=== PATIENT | female | born 1935 | race Caucasian/White ===

== ENCOUNTER 2017-01-13 17:25 | Emergency (ER) | payer OTHER ==
[2017-01-13 17:34] VITALS: TEMP 97.3
[2017-01-13] MEDS ORDERED: TETANUS, DIPHTHERIA TOX (7YR+) 0.5 ML INJ IM ONE (18:01)
--- NOTE | 2017-01-13 18:32 | EDPHY ---
H & P Stated Complaint: fall trip lac lip -LOC Source: Patient, Family Exam Limitations: No limitations - Personal History Current Tetanus/Diphtheria Vaccine: Unsure Current Tetanus Diphtheria and Acellular Pertussis (TDAP): Unsure - Medical/Surgical History Hx Asthma: Yes Hx Chronic Respiratory Disease: No Hx Diabetes: No Hx Cardiac Disease: Yes Hx Renal Disease: No Hx Cirrhosis: No Hx Alcoholism: No Hx Splenectomy or Spleen Trauma: No Other PMH: High chol, valve replacement - Social History Smoking Status: Never smoked HPI/ROS: CHIEF COMPLAINT: Fall, facial contusions, lip laceration HISTORY OF PRESENT ILLNESS: Patient was walking out of her home to go to the restroom and an outdoor bathroom less than 1 hour prior to arrival. She says she tripped and fell. She landed on her face. There is no loss of consciousness. She complains of some bruising to the face at a lip laceration that is bleeding heavily. This is the lower lip centrally. It is involving the inner aspect of the lip over the mucosa. She has no dental pain. No headache. No loss of conscious. No nausea or vomiting. No visual disturbance. No neck pain or stiffness. She denies her teeth are malaligned. She has no difficulty opening her mouth. The pain of the lip is mild. No radiating symptoms. She does take Plavix due to a valve replacement. No other associated complaints or modifying factors. Her is at bedside and witnessed the fall. REVIEW OF SYSTEMS: Ten systems reviewed and are negative unless otherwise noted in the HPI PAST MEDICAL HISTORY: As reviewed. Plavix for valvuloplasty SOCIAL HISTORY: Nonsmoker. Lives independently with her spouse FAMILY HISTORY: Noncontributory EXAMINATION General Appearance: Alert, no distress Head: normocephalic. Multiple areas of contusion to the face. Laceration of the lower lip as noted below. No Alford sign. No raccoon eyes. No palpable depressions. No scalp hematoma. Eyes: Pupils equal and round, no conjunctival pallor or injection ENT, Mouth: Mucous membranes moist. There is a 1.25 cm laceration of the lower lip, involving the mucosa. There is no involvement of the vermilion border. Airway is widely patent. There is dried blood about the mouth. Neck: Normal inspection, supple. Kyphotic appearance. Nontender. No step-off , crepitus or deformity Respiratory: Lungs are clear to auscultation Cardiovascular: Systolic murmur. Regular rate and rhythm. Gastrointestinal: Abdomen is soft and nontender Back: non-tender, no bony abnormalities Neurological: GCS 15. Cranial nerves 2-12 grossly intact. Strength is symmetric in all 4 limbs A&O, nonfocal. No pronator drift. No dysmetria. Normal mental status. Skin: Warm and dry, no rash. 1.25 cm oblique laceration of the lower lip centrally. This involves the mucosa. No involvement of the vermilion border. There is moderate bleeding from the wound. No foreign body present. No surrounding cyanosis. Extremities: Nontender, no pedal edema Psychiatric: Mood and affect normal DIFFERENTIAL DIAGNOSES: Including but not limited to closed head injury, intracranial hemorrhage, skull fracture, lip laceration, facial contusions, cervical fracture, cervical sprain MDM: 5:50 p.m. Mechanical fall with facial ecchymosis. There is a lip laceration with moderate bleeding present. No foreign body appreciated. Continue pressure for hemostasis. CT scan of the head ordered due to Plavix use. She is in no acute distress with a normal neuro examination. 6:25 p.m. Lower lip laceration has been anesthetized and closed without complication. There was a mild, superficial arterial bleed noted. This has been hemostasis with pressure and closure of the wound. I have monitored her for 5 minutes with pressure and there is no bleeding at this time. I will monitor and recheck. CT scan is pending at this time. 6:30 p.m. Notified by radiologist Dr. Piedra. CT scan of the head reveals no acute findings. CT scan of the cervical spine reveals chronic, degenerative changes. No acute findings. 7:04 p.m. I have re-evaluated the patient. Now that the patient's wound have been irrigated further there is 1 small area of laceration defects. There was [address] The totals up to 4 simple interrupted sutures. She is hemostasis at this point. Discharged home in stable condition. I plan to drive back to [place] tomorrow morning. The contacted primary care physician in the morning for follow-up tomorrow or on Tuesday. Return to the nearest ER for any headache, vomiting, visual disturbance, neck pain, fever. She is comfortable this plan and discharged home stable condition PROCEDURE: Laceration repair Consent: Verbal Location: Lower lip, centrally Length of repair: 1.25 cm Complexity: Complex due to bleeding Layer involvement: Single Anesthesia: Local, 1% lidocaine plain, 3 mL Irrigation: Extensive Debridement: None Procedure description: Following good anesthesia, the wound was copiously irrigated. Wound bed was explored and there is no foreign body noted. Wound borders were approximated well with good hemostasis. Tolerated well without complication. Suture/Staple material: 6-0 plain gut, 4 simple interrupted sutures of the mucosa Wound care: Routine as discussed Suture/Staple removal: None. Absorbable sutures SUPERVISION: Patient was evaluated in conjunction with the supervising physician. Please see their note for details. (Andrews Dominguez) Constitutional: Initial Vital Signs Temperature (C) 36.3 C 01/13/17 17:30 Heart Rate 84 01/13/17 17:30 Respiratory Rate 16 01/13/17 17:30 Blood Pressure 115/94 H 01/13/17 17:30 O2 Sat (%) 95 01/13/17 17:30 O2 Delivery Mode Room Air Allergies/Adverse Reactions: morphine Allergy (Verified 01/13/17 17:34) Medical Decision Making - Diagnostics Imaging Results: Imaging Impressions Cervical Spine CT 01/13/17 17:51 Impression: 1. No acute posttraumatic abnormality identified. If symptoms persist and clinical suspicion warrants, consider MRI. 2. Multilevel spondylolistheses, degenerative change, and fusion anomalies, as above. Findings discussed with Andrews Dominguez PA-C, on January 13, [address] 01/13/17 17:51 Impression: 1. No acute intracranial findings. 2. Diffuse cerebral atrophy, with periventricular and subcortical low- attenuation consistent with chronic microvascular ischemic gliosis. Findings discussed with Andrews Dominguez PA-C, on January 13, 2017 at 1828. ED Course/Re-evaluation: I did not see this patient while she was in the emergency department. However her care was discussed with the PA while the patient was in the department. I agree with treatment plan and management (Meng Rankin) - Data Points Medications Given: Discontinued Medications Tetanus/Diphtheria Toxoids Adsorbed (Tetanus-Diphtheria Tenivac) 0.5 ml IM .ONCE ONE Stop: 01/13/17 18:02 Last Admin: 01/13/17 18:12 Dose: 0.5 ml Departure - Departure Disposition: Home, Routine, Self-Care Clinical Impression: Laceration of lip Qualifiers: Encounter type: initial encounter Qualified Code(s): S01.511A - Laceration without foreign body of lip, initial encounter Closed head injury Qualifiers: Encounter type: initial encounter Qualified Code(s): S09.90XA - Unspecified injury of head, initial encounter Facial bruising Qualifiers: Encounter type: initial encounter Qualified Code(s): S00.83XA - Contusion of other part of head, initial encounter Condition: Good Instructions: Laceration (ED), Care For Your Absorbable Stitches (ED) Additional Instructions: 1. Contact your primary care physician tomorrow for re-evaluation 2. Return to the ER for any return of symptoms, headache, vomiting, changes in vision Referrals: Torri Reynolds MD [[facility] Primary Care Provider] - As per Instructions
[2017-01-13 19:18] VITALS: BP 167/102; PULSE 72; RESP 18; O2SAT 97
== END 2017-01-13 19:18 | disposition home or self-care (01) ==
DX: S01.511A Laceration without foreign body of lip, initial encounter (principal); J45.909 Unspecified asthma, uncomplicated; Z23 Encounter for immunization; W01.198A Fall on same level from slipping, tripping and stumbling with subsequent striking against other object, initial encounter; Y92.002 Bathroom of unspecified non-institutional (private) residence as the place of occurrence of the external cause; Y99.8 Other external cause status; Y93.01 Activity, walking, marching and hiking